=== PATIENT | female | born 1985 | race African-American/Black ===

== ENCOUNTER 2021-09-28 03:01 | Emergency (ER) | payer OTHER ==
[~2021-09-28 03:01] MED LIST: ZOFRAN8 MG PO
[2021-09-28 03:37] LABS: BASOPHIL 0.3 % (0-2); EOSINOPHIL 1.3 % (0-5); HGB 12.4 g/dl (12.5-16.0); LYMPHOCYTE 43.8 % (15-48); MCH 29.2 pg (25.0-31.0); MCHC 33.5 g/dL (32.0-36.0); MCV 87.3 fL (78.0-100.0); MONOCYTE 7.7 % (0-12); MPV 9.3 fL (6.0-9.5); NEUTROPHIL 46.8 % (41-80); NRBC 0; PLT 305 K/uL (150-400); RBC 4.24 M/uL (4.20-5.40); RDW 12.6 % (11.5-14.0)
[2021-09-28 04:03] LABS: BILIRUBIN - TOTAL 0.2 mg/dL (0.2-1.0); BUN/CREAT RATIO (CALC) 15.6 RATIO; CREATININE 0.96 mg/dL (0.51-0.95); GLOBULIN (CALCULATION) 3.5 g/dL; MAGNESIUM 1.7 mg/dL (1.8-2.4); POTASSIUM 2.9 mmol/L (3.5-5.1); TOTAL PROTEIN 7.5 g/dL (6.4-8.2)
== END 2021-09-28 08:09 | disposition home or self-care (01) ==
LOC: FER 03:01
PROVIDERS: Emergency Medicine
DX: R00.2 Palpitations (principal); R00.0 Tachycardia, unspecified; E87.6 Hypokalemia; E83.42 Hypomagnesemia; R94.6 Abnormal results of thyroid function studies; F17.200 Nicotine dependence, unspecified, uncomplicated; Z88.5 Allergy status to narcotic agent; Z88.6 Allergy status to analgesic agent
CPT/HCPCS: 36415; 71045; 71275; 80053; 83735; 84443; 84484; 85025; 85379; 93005; J3475; J3480; J7030; J7050; Q9967

== ENCOUNTER 2021-12-01 20:50 | Emergency (ER) | payer OTHER ==
[2021-12-01 21:39] LABS: BASOPHIL 0.3 % (0-2); EOSINOPHIL 0.3 % (0-5); HCT 40.3 % (37.0-47.0); HGB 13.2 g/dl (12.5-16.0); LYMPHOCYTE 31.7 % (15-48); MCH 29.1 pg (25.0-31.0); MCHC 32.8 g/dL (32.0-36.0); MONOCYTE 6.5 % (0-12); NEUTROPHIL 60.7 % (41-80); NRBC 0; PLT 341 K/uL (150-400); RBC 4.53 M/uL (4.20-5.40)
[2021-12-01 22:06] LABS: ALBUMIN 4.4 g/dL (3.4-5.0); BILIRUBIN - TOTAL 0.3 mg/dL (0.2-1.0); BUN/CREAT RATIO (CALC) 9.1 RATIO; CREATININE 0.88 mg/dL (0.51-0.95); GLOBULIN (CALCULATION) 3.6 g/dL; POTASSIUM 3.8 mmol/L (3.5-5.1)
== END 2021-12-02 00:56 | disposition home or self-care (01) ==
LOC: FER 20:50
PROVIDERS: Physician Assistant
DX: R07.89 Other chest pain (principal); F17.210 Nicotine dependence, cigarettes, uncomplicated
CPT/HCPCS: 36415; 71045; 71275; 80053; 84443; 84484; 85025; 85379; 93005; J7030; Q9967

== ENCOUNTER 2021-12-07 22:00 | Emergency (ER) | payer OTHER ==
[2021-12-07 22:44] LABS: BASOPHIL 0.4 % (0-2); EOSINOPHIL 0.2 % (0-5); HCT 39.3 % (37.0-47.0); HGB 13.2 g/dl (12.5-16.0); MCH 29.6 pg (25.0-31.0); MCHC 33.6 g/dL (32.0-36.0); MCV 88.1 fL (78.0-100.0); MONOCYTE 6.7 % (0-12); NEUTROPHIL 68.5 % (41-80); NRBC 0; PLT 327 K/uL (150-400); RBC 4.46 M/uL (4.20-5.40); RDW 12.5 % (11.5-14.0); WBC 5.1 K/uL (4.0-10.5)
[2021-12-07 23:10] LABS: BUN/CREAT RATIO (CALC) 15.9 RATIO; CREATININE 0.82 mg/dL (0.51-0.95); MAGNESIUM 1.8 mg/dL (1.8-2.4); POTASSIUM 3.8 mmol/L (3.5-5.1)
== END 2021-12-07 23:53 | disposition home or self-care (01) ==
LOC: FER 22:00
PROVIDERS: Internal Medicine
DX: R00.2 Palpitations (principal); R00.0 Tachycardia, unspecified; F17.210 Nicotine dependence, cigarettes, uncomplicated; Z88.5 Allergy status to narcotic agent; Z88.6 Allergy status to analgesic agent
CPT/HCPCS: 36415; 80048; 83735; 84439; 84443; 84484; 85025; 93005